=== PATIENT | female | born 1935 | race Caucasian/White ===

== ENCOUNTER → 2021-04-03 | Outpatient (CLI) | payer MEDICARE, OTHER ==
[~2021-04-03] MED LIST: MECLIZINE HCL25 MG PO; ONDANSETRON ODT4 MG SL
== END ==
LOC: KOH-I 04-02 14:30
DX: G43.909 Migraine, unspecified, not intractable, without status migrainosus (principal); G50.1 Atypical facial pain; G50.0 Trigeminal neuralgia
CPT/HCPCS: 70450

== ENCOUNTER 2021-05-16 12:56 | Emergency (ER) | payer MEDICARE, OTHER ==
[2021-05-16 13:20] LABS: HEMOGLOBIN 14.5 gm/dl (12.3-15.3); RED BLOOD COUNT 4.33 M/UL (4.00-5.10); WHITE BLOOD COUNT 5.9 K/UL (4.5-11.0)
[2021-05-16 13:38] LABS: BUN/CREATININE RATIO 13 (0-10)
[2021-05-16] MEDS ORDERED: MECLIZINE HCL25 MG PO (16:54)
[2021-05-16] MEDS ORDERED: ONDANSETRON ODT4 MG SL (16:54)
== END 2021-05-16 19:00 | disposition home or self-care (01) ==
LOC: ER1 12:56
PROVIDERS: Physician Assistant
DX: R42 Dizziness and giddiness (principal); R51.9 Headache, unspecified; G50.0 Trigeminal neuralgia; E11.9 Type 2 diabetes mellitus without complications; I10 Essential (primary) hypertension; Z20.822 Contact with and (suspected) exposure to COVID-19; I48.91 Unspecified atrial fibrillation; I25.10 Atherosclerotic heart disease of native coronary artery without angina pectoris; Z88.2 Allergy status to sulfonamides; Z88.5 Allergy status to narcotic agent; Z79.82 Long term (current) use of aspirin; Z79.899 Other long term (current) drug therapy; Z95.0 Presence of cardiac pacemaker
CPT/HCPCS: 70450; 80053; 81001; 82550; 82553; 83874; 84484; 85025; 93005; 96374; 96375; 99284; J1885; J2405; U0002